=== PATIENT | female | born 1965 | race Caucasian/White ===

== ENCOUNTER 2020-06-19 07:57 | Day surgery (SDC) | payer BC ==
[~2020-06-19] VITALS: Ht 162.6 cm; Wt 81.4 kg
[~2020-06-19 07:57] MED LIST: ALBU90OI61 INH; Advair Hfa 230-12 GM; CHLO25B PO; CITALOPRAM HBR40 MG PO; Citalopram HBr10 MG PO; LOSA25 PO; LOSARTAN POTAS100 MG PO; METO100ER PO; SYMBICORT 16010.2 GM INH; TIOT18 INH; VALS80
--- NOTE | 2020-06-19 08:29 | NUR ---
06/19/20 0829 CECILE MULLER PT BOWEL PREP SUTABS
== END 2020-06-19 10:20 | disposition home or self-care (01) ==
LOC: ORSCSDS 07:57
PROVIDERS: Student in an Organized Health Care Education/Training Program
PROC: 0DB48ZX Excision of Esophagogastric Junction, Via Natural or Artificial Opening Endoscopic, Diagnostic (ICD-10-PCS; principal; 2020-06-19 09:15)
PROC: 0DBM8ZX Excision of Descending Colon, Via Natural or Artificial Opening Endoscopic, Diagnostic (ICD-10-PCS; principal; 2020-06-19 09:15)
PROC: 0DB78ZX Excision of Stomach, Pylorus, Via Natural or Artificial Opening Endoscopic, Diagnostic (ICD-10-PCS; principal; 2020-06-19 09:15)
DX: R11.2 Nausea with vomiting, unspecified (principal); K21.9 Gastro-esophageal reflux disease without esophagitis; Z12.11 Encounter for screening for malignant neoplasm of colon; D12.4 Benign neoplasm of descending colon; K64.8 Other hemorrhoids; K64.4 Residual hemorrhoidal skin tags; J45.909 Unspecified asthma, uncomplicated; I10 Essential (primary) hypertension; Z87.891 Personal history of nicotine dependence; Z79.899 Other long term (current) drug therapy
CPT/HCPCS: 88305; 88312; 88342; J2250; J2704; J7120

== ENCOUNTER → 2023-09-07 | Outpatient (CLI) | payer BC ==
[2023-09-07 11:29] LABS: BASOPHILS ABSOLUTE AUTO 0.06 K/mm3 (0.00-0.23); BASOPHILS PERCENT AUTO 1 % (0-2); EOSINOPHILS ABSOLUTE AUTO 0.35 K/mm3 (0.00-0.68); EOSINOPHILS PERCENT AUTO 5 % (0-6); Hematocrit 42.2 % (33.0-51.0); Hemoglobin 14.4 g/dL (11.5-16.0); IMMATURE GRAN ABSOLUTE AUTO 0.02 K/mm3 (0.00-0.10); IMMATURE GRAN PERCENT AUTO 0 % (0-1); LYMPHOCYTES ABSOLUTE AUTO 2.68 K/mm3 (0.84-5.20); LYMPHOCYTES PERCENT AUTO 36 % (21-46); MONOCYTES ABSOLUTE AUTO 0.62 K/mm3 (0.16-1.47); MONOCYTES PERCENT AUTO 8 % (4-13); Mean Corpuscular HGB 33.3 pg (26.0-34.0); Mean Corpuscular HGB Conc 34.1 g/dL (31.5-36.5); Mean Corpuscular Volume 98 fL (80-100); Mean Platelet Volume 11.4 fL (9.1-12.4); NEUTROPHILS ABSOLUTE AUTO 3.63 K/mm3 (1.96-9.15); NEUTROPHILS PERCENT AUTO 49 % (41-73); Platelet Count 242 K/mm3 (150-400); RDW Coefficient Variation 12.5 % (11.7-14.2); RDW Standard Deviation 45.2 fL (35.1-46.3); Red Blood Cell Count 4.32 M/mm3 (3.80-5.20); White Blood Cell Count 7.36 K/mm3 (4.00-11.30)
[2023-09-07 11:52] LABS: Albumin, Blood 4.3 g/dL (3.4-5.0); Albumin/Globulin Ratio 1.1 (0.8-1.8); Bilirubin, Total 0.8 mg/dL (0.1-1.0); Bun/Creatinine Ratio 27.7 (12.0-20.0); Calcium, Blood 9.7 mg/dL (8.5-10.1); Creatinine, Blood 0.94 mg/dL (0.40-1.00); Globulin, Blood 3.8 g/dL (2.2-4.0); Total Protein, Blood 8.1 g/dL (6.4-8.2)
== END ==
LOC: LAB SHORT 08:29 → LAB 08:29
PROVIDERS: Nurse Practitioner Family
DX: I10 Essential (primary) hypertension (principal)
CPT/HCPCS: 80053; 85025

== ENCOUNTER 2024-09-10 08:58 | Day surgery (SDC) | payer BC ==
[~2024-09-10] VITALS: Ht 165.1 cm; Wt 85.7 kg
[~2024-09-10 08:58] MED LIST changes: +FentaNYL Citrate 50 MCG/ML 2 ML Injection ONE; +Glycopyrrolate 0.2 MG/ML 5ML VIAL ONE; +Ketamine HCl 100 MG / ML 5ML Vial ONE; +Lactated Ringer's 1,000 ML IV ONE; +propofoL 20 ML IV ONE
--- NOTE | 2024-09-10 09:28 | NUR ---
09/10/24 0928 GONZALO ROCHE RESTING ON GURNEY, RAILS UP, BRAKES LOCKED.
[2024-09-10] MEDS ORDERED: Lactated Ringer's 1,000 ML IV ONE ×2 (09:33→11:18)
[2024-09-10] MEDS ORDERED: Bupivacaine 0.5% W/EPI 1:200000 SDV 30 ML Vial ONE (10:23)
[2024-09-10] MEDS ORDERED: EPINEPhrine HCl 1 MG/ML 1ML Amp ONE (10:23)
[2024-09-10] MEDS ORDERED: Midazolam HCl 1MG / ML 2ML Vial ONE (10:34)
[2024-09-10] MEDS ORDERED: FentaNYL Citrate 50 MCG/ML 2 ML Injection ONE ×2 (11:05→12:02)
[2024-09-10] MEDS ORDERED: Ondansetron HCl 2 MG / ML 2ML Vial ONE (11:22)
[2024-09-10] MEDS ORDERED: Dexamethasone Sod Phos 10 MG/ML 1ML VIAL ONE (11:22)
[2024-09-10] MEDS ORDERED: Ketorolac Tromethamine 30mg Vial ONE (11:22)
--- NOTE | 2024-09-10 11:53 | NUR ---
09/10/24 1153 Carly Cantu REPORT RECEIVED FROM ALIYAH AND RN. PT DROWSY, AAOX4. PT DENIES NAUSEA. REPORTS PAIN IS TOLERABLE. DRESSING CDI. LEFT TOES CAP REFILL <3 SECONDS, LEFT TOES PINK, WARM AND DRY. LEFT PEDAL PULSE PALPABLE. VSS.
[2024-09-10] MEDS ORDERED: CeFAZolin Sodium 2,000 MG VIAL ONE (12:07)
--- NOTE | 2024-09-10 12:17 | NUR ---
09/10/24 1217 Carly Cantu PT TRANSFERRED TO [facility], PT TOLERATING ORAL FLUIDS WELL. LEFT LEG ELEVATED WITH POLAR PACK APPLIED. PT DECLINES FURTHER PAIN MEDICATION AT THIS TIME. DENIES NAUSEA
[2024-09-10] MEDS ORDERED: HYDROcodone 5-APAP 325 TAB ONE (12:29)
[2024-09-10 12:38] VITALS: BP 138/79
== END 2024-09-10 13:18 | disposition home or self-care (01) ==
LOC: ORSCSDS 08:58
PROVIDERS: Orthopaedic Surgery
PROC: 0SBD4ZZ Excision of Left Knee Joint, Percutaneous Endoscopic Approach (ICD-10-PCS; principal; 2024-09-10 10:30)
DX: M23.201 Derangement of unspecified lateral meniscus due to old tear or injury, left knee (principal); M23.204 Derangement of unspecified medial meniscus due to old tear or injury, left knee; M17.12 Unilateral primary osteoarthritis, left knee; J45.909 Unspecified asthma, uncomplicated; I10 Essential (primary) hypertension; F41.9 Anxiety disorder, unspecified; F32.A Depression, unspecified; Z87.891 Personal history of nicotine dependence; Z79.899 Other long term (current) drug therapy
CPT/HCPCS: A9270; J0171; J0690; J1100; J1885; J2250; J2405; J2704; J3010; J7120